=== PATIENT | female | born 1980 | race American Indian/Alaskan Native ===

== ENCOUNTER 2019-03-19 11:53 | Outpatient (CLI) | payer OTHER ==
--- NOTE | 2019-03-19 12:22 | XRay Report ---
RIGHT HIP, 2 views: History: Pain in right hip. 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 There are mild degenerative changes of the right hip joint. No evidence for acute fracture or bone lesion. Left hip replacement is anatomic. 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
== END 2019-03-19 11:54 | disposition home or self-care (01) ==
LOC: XRAY 11:53
PROVIDERS: ATTEND Orthopaedic Surgery
DX: M87.851 Other osteonecrosis, right femur (principal)

== ENCOUNTER 2019-04-11 05:37 | Inpatient (IN) | payer OTHER ==
--- NOTE | 2019-04-08 12:01 | Anesthesia Consultation ---
Anesthesia Consult and Med Hx Date of service: 04/11/19 - Airway Anesthetic Teeth Evaluation: Good ROM Head & Neck: Adequate Mental/Hyoid Distance: Adequate Mallampati Class: Class II Intubation Access Assessment: Good - Pre-Operative Health Status ASA Pre-Surgery Classification: ASA2 Proposed Anesthetic Plan: Spinal (SAB; GA if needed) - Pulmonary Hx Smoking: No Hx Sleep Apnea: No (RYAN PRE SCREEN LOW RISK) - Cardiovascular System Hx Hypertension: Yes (NO MEDS AT PRESENT) - Hematic Hx Anemia: Yes (NOT RECENT) Hx Sickle Cell Disease: No (SC TRAIT ONLY) - Other Systems Hx Cancer: No - Additional Comments Anesthesia Medical History Comments: 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 Pt states no cardiac issues and had ECG last August with Araceli NOLASCO
[2019-04-08 12:37] LABS: Basophils # (Auto) 0.1 K/mm3 (0.0-0.1); Eosinophils % (Auto) 0.4 % (0.0-4.3); Hematocrit 41.7 % (30.3-42.9); Hemoglobin 14.1 gm/dl (10.1-14.3); Lymphocytes # (Auto) 1.8 K/mm3 (1.2-5.4); Lymphocytes % (Auto) 28.5 % (13.4-35.0); Mean Corpuscular HGB Conc 34 % (30-34); Mean Corpuscular Volume 93 fl (79-97); Monocytes # (Auto) 0.5 K/mm3 (0.0-0.8); Monocytes % (Auto) 7.6 % (0.0-7.3); Platelet Count 164 K/mm3 (140-440); Red Blood Count 4.49 M/mm3 (3.65-5.03); Red Cell Distribution Width 14.4 % (13.2-15.2)
[2019-04-08 12:40] LABS: Alanine Aminotransferase 12 units/L (7-56); Albumin 4.2 g/dL (3.9-5); BUN/Creatinine Ratio 12; Blood Urea Nitrogen 11 mg/dL (7-17); Calcium 9.3 mg/dL (8.4-10.2); Hemolysis Index 22
[2019-04-08 12:45] LABS: INR 1.07 (0.87-1.13)
[~2019-04-11 05:37] MED LIST: ANCEF/STERILE WATER 2 GM/20 ML IV NR
[2019-04-11] MEDS ORDERED: NACL BACTERIOSTATIC INFILTRATI ONE (06:35)
[2019-04-11] MEDS: NEURONTIN PO NR ×2 (06:40→07:26)
[2019-04-11] MEDS: LACTATED RINGERS 1,000 ML IV SCH ×3 (06:45→21:06)
[2019-04-11] MEDS ORDERED: SUBLIMAZE IV ONE (06:51)
[2019-04-11] MEDS: VERSED IV NR ×2 (07:00→07:47)
[2019-04-11] MEDS ORDERED: NEURONTIN PO NR ×2 (07:21→07:30)
[2019-04-11] MEDS ORDERED: TORADOL ONE (07:30)
[2019-04-11] MEDS ORDERED: MARCAINE 0.5% INFILTRATI ONE (07:31)
[2019-04-11] MEDS ORDERED: TRANEXAMIC ACID ONE (07:31)
[2019-04-11] MEDS ORDERED: NACL 0.9% 0 ML ONE ×2 (07:31→07:32)
[2019-04-11] MEDS ORDERED: MORPHINE ONE (07:31)
[2019-04-11] MEDS ORDERED: ACD-A 500 ML IV ONE (08:01)
[2019-04-11] MEDS ORDERED: DIPRIVAN 10 MG/ML IV ONE ×3 (08:08→09:15)
[2019-04-11] MEDS ORDERED: KETALAR ONE (08:08)
[2019-04-11] MEDS ORDERED: XYLOCAINE CARDIAC IV ONE (08:47)
[2019-04-11] MEDS ORDERED: NEO SYNEPHRINE/NS Syringe(OR USE) IV ONE (08:48)
[2019-04-11] MEDS ORDERED: ROBINUL ONE (08:49)
[2019-04-11] MEDS ORDERED: NACL 0.9% IR ONE ×2 (08:55)
[2019-04-11] MEDS ORDERED: ZOFRAN IV PRN (10:16)
[2019-04-11] MEDS ORDERED: AMBIEN PO PRN (10:16)
--- NOTE | 2019-04-11 10:24 | Procedure Note ---
Date of procedure: 04/11/19 Pre-op diagnosis: osteoarthritis right hip Post-op diagnosis: same Procedure: Right total hip replacement Procedure The patient was brought to the OR after being given an epidural catheter in pre op holding,she was place on the OR table in the supine position next she patient's was turned into the left lateral decubitus position care was taken to protect the bony areas and a axillary roll was used and the left axilla. Right hip and thigh were then prepped and draped in the usual sterile manner. A timeout procedure was done to identify the patient and the correct operative site. Using the lateral approach incision was taken down through skin and subcutaneous the fascia ramses was incised A Charnley retractor was placed deep within the wound care was taken to enter the anterior hip capsule by the vastus lateralis and the gluteus medius tendons in the knee was flexed and internally rotated which brought us upon the anterior portion of the hip joint using a small broach and osteotomy was performed on the femoral neck approximately 2 cm to centimeters proximal to the lesser trochanter. Using Bailey retractors the the acetabular structures were evaluated the patient was noted to have some moderate changes within the acetabulum reaming was begun starting with a 45 mm diameter and advancing up to a 53 mm cup was taken to the observed bleeding bone within the acetabulum nicely 56 mm cup was inserted care was taken to maintain the proper version that being 45 abduction and 20 of anteversion and a small screw was used to stabilize this acetabular component next attention was turned to the proximal femur using a cookie cutter and the proximal femoral canal was entered this was then reamed and broached to a #4 stem And the hip joint was then reduced using a 30 neutral neck and a 32 mm head hip was reduced taken through a range of motion and was found to be stable Trial component was removed and the hip joint was then copiously irrigated the final components were inserted that being a #4 femoral stem with a 32 mm head a gain the hip joint was reduced and was taken through a range of motion and found stable. He was closed in a standard routine fashion. Dressings were applied the patient tolerated the procedure and there were no complications he was taken to postanesthesia recovery stable Anesthesia: MAC, regional Surgeon: ELY FERRIS Portfolio Specialist: FELIPE OLIVERA Estimated blood loss: other (300 mL) Pathology: list (right femoral head) Specimen disposition: to lab Condition: stable Disposition: PACU
[2019-04-11] MEDS ORDERED: SODIUM CHLORIDE FLUSH SYRINGE 10 ML IV SCH (11:00)
[2019-04-11] MEDS ORDERED: ROPIVACAINE PERCUTANEO NR (11:15)
[2019-04-11] MEDS ORDERED: SODIUM CHLORIDE 0.9% PERCUTANEO NR (11:15)
[2019-04-11] MEDS ORDERED: NARCAN 0.4 MG/1 ML IV PRN ×3 (11:30→12:27)
[2019-04-11] MEDS ORDERED: SODIUM CHLORIDE FLUSH SYRINGE 10 ML IV PRN ×4 (11:30→18:37)
--- NOTE | 2019-04-11 11:31 | Post Anesthesia Evaluation ---
- Post Anesthesia Evaluation Patient Participated: Yes Airway Patent: Yes Stable Respiratory Function: Yes Nausea/Vomiting: No Temp > 96.8F: Yes Pain Manageable: Yes Adequeate Hydration: Yes Anesthesia Complications: No
[2019-04-11] MEDS: MORPHINE IV PRN ×2 (13:00→15:49)
[2019-04-11] MEDS ORDERED: XYLOCAINE 2% INFILTRATI ONE ×3 (13:21→18:44)
[2019-04-11] MEDS ORDERED: SUBLIMAZE 500 MCG in NACL 0.9% 90 ML EPIDURAL SCH (13:30)
--- NOTE | 2019-04-11 19:16 | Progress Note ---
Assessment and Plan Inadequate post-op analgesia with epidural in-situ 1. Administered 9cc 2% lidocaine plain in divided doses via epidural catheter over 10 minutes with excellent response. Pain score currently 2/10. 2. New orders placed for fentanyl/bupivicaine epidural gtt as this will likely provide better analgesia and patient has been HD stable. Monitor for hypotension. 3. Will plan to remove catheter tomorrow morning per surgeon orders so that patient may participate in PT. Hold lovenox administration until at least 2hrs after epidural catheter removal. Plan of care discussed with patient, family, and RN. Subjective Date of service: 04/11/19 (Epidural Assessment) Interval history: Called by RN regarding uncontrolled patient POD 0 R total hip replacement with lumbar epidural in place for postop analgesia. Per nurse, patient reported >10/10 pain despite fentanyl epidural infusing as ordered and IV morphine prn. No hypotension or over-sedation. On my arrival, patient was A/O x3 in obvious discomfort. She reported that she initially had excellent pain control with epidural but was now in intolerable pain. Objective - Exam Narrative Exam: A/O x3 in obvious discomfort 2/2 pain - Constitutional Vitals: Vital Signs - 12hr 04/11/19 04/11/19 04/11/19 07:40 07:45 07:50 Temperature Pulse Rate 69 92 H 87 Respiratory 18 18 18 Rate Blood Pressure 145/89 119/78 103/82 O2 Sat by Pulse 99 99 99 Oximetry 04/11/19 04/11/19 04/11/19 07:55 08:00 10:31 Temperature 96.8 F L Pulse Rate 86 87 97 H Respiratory 18 16 15 Rate Blood Pressure 103/72 115/74 120/83 O2 Sat by Pulse 99 99 100 Oximetry 04/11/19 04/11/19 04/11/19 10:35 10:40 10:45 Temperature Pulse Rate 94 H 95 H 84 Respiratory 17 15 19 Rate Blood Pressure 119/89 121/89 128/95 O2 Sat by Pulse 100 100 100 Oximetry 04/11/19 04/11/19 04/11/19 10:50 11:00 11:15 Temperature 97.7 F Pulse Rate 84 72 71 Respiratory 14 18 20 Rate Blood Pressure 133/95 132/94 121/91 O2 Sat by Pulse 100 100 100 Oximetry 04/11/19 04/11/19 04/11/19 11:30 11:45 12:00 Temperature 97.4 F L Pulse Rate 81 76 87 Respiratory 18 16 20 Rate Blood Pressure 123/87 122/90 118/83 O2 Sat by Pulse 100 100 100 Oximetry 04/11/19 04/11/19 04/11/19 12:30 13:00 13:30 Temperature Pulse Rate 90 94 H 90 Respiratory 12 14 12 Rate Blood Pressure 128/87 142/88 128/87 O2 Sat by Pulse 100 100 96 Oximetry 04/11/19 04/11/19 04/11/19 13:41 13:53 14:25 Temperature 98 F Pulse Rate 100 H 99 H Respiratory 12 15 16 Rate Blood Pressure 126/83 118/74 O2 Sat by Pulse 100 100 Oximetry 04/11/19 16:54 Temperature 98.1 F Pulse Rate 102 H Respiratory 18 Rate Blood Pressure 128/94 O2 Sat by Pulse 96 Oximetry - Respiratory Respiratory effort: normal Extremities: Full ROM (LUE movement without deficit. Minimal RLE movement 2/2 pain.) - Neurologic Neurologic: moves all extremities - Labs CBC & Chem 7: 04/08/19 11:30 04/08/19 11:30
[2019-04-11] MEDS: fentaNYL-BUPIV 2 MCG/ML-0.125% 200 MCG/100 ML BAG EPIDURAL SCH (20:07)
[2019-04-11] MEDS: NORCO 5/325 PO PRN (21:04)
[2019-04-12] MEDS: fentaNYL-BUPIV 2 MCG/ML-0.125% 200 MCG/100 ML BAG EPIDURAL SCH (03:50)
[2019-04-12] MEDS: NORCO 5/325 PO PRN ×2 (05:17→15:35)
[2019-04-12 05:28] LABS: Red Blood Count 3.81 M/mm3 (3.65-5.03)
[2019-04-12 05:29] LABS: Hematocrit 34.7 % (30.3-42.9); Hemoglobin 12.2 gm/dl (10.1-14.3); Mean Corpuscular HGB Conc 35 % (30-34); Mean Corpuscular Volume 91 fl (79-97); Platelet Count 132 K/mm3 (140-440); Red Cell Distribution Width 13.5 % (13.2-15.2)
[2019-04-12 05:38] LABS: INR 1.29 (0.87-1.13)
[2019-04-12] MEDS: LACTATED RINGERS 1,000 ML IV SCH (06:58)
--- NOTE | 2019-04-12 07:09 | Post Anesthesia Evaluation ---
- Post Anesthesia Evaluation Patient Participated: Yes Airway Patent: Yes Stable Respiratory Function: Yes Nausea/Vomiting: No Temp > 96.8F: Yes Pain Manageable: Yes Adequeate Hydration: Yes Anesthesia Complications: No Block Receding Appropriately: Yes (Full motor strength) Other Comments: Epidural pump turned off at approx. 0600 and patient administerred PO pain meds. AM labs within acceptable range. Epidural catheter removed with tip intact, no erythema or tenderness at insertion site. Pain currently well controlled. Patient advised of red flag symptoms for epidural hematoma as well as post-dural puncture headache symptoms and instructed to alert RN or return to ED if these occur.
[2019-04-12] MEDS ORDERED: LOVENOX SUB-Q SCH (10:00)
[2019-04-12] MEDS: MORPHINE IV PRN (11:13)
[2019-04-12 12:53] VITALS: BP 126/81
--- NOTE | 2019-04-12 13:37 | Progress Note ---
Assessment and Plan s/p right THR doing well will dc to home today, RTC in 10 days for f/u Subjective Date of service: 04/12/19 Interval history: doing well, PT started today ambulated about room and hallway w/o difficulty Objective Vital signs: Vital Signs - 12hr 04/12/19 04/12/19 04/12/19 05:19 05:47 08:09 Temperature 98.7 F 98.4 F Pulse Rate 93 H 109 H 98 H Respiratory 18 18 Rate Blood Pressure 110/73 Blood Pressure 128/90 [Left] O2 Sat by Pulse 99 97 99 Oximetry 04/12/19 12:20 Temperature 98.7 F Pulse Rate 88 Respiratory 18 Rate Blood Pressure 126/81 Blood Pressure [Left] O2 Sat by Pulse 98 Oximetry Incision: clean and dry Weight bearing status: as tolerated - Labs CBC & BMP: 04/12/19 04:04 04/08/19 11:30 Labs: Abnormal lab results 04/12/19 04/12/19 Range/Units 04:04 04:04 WBC 13.9 H (4.5-11.0) K/mm3 MCHC 35 H (30-34) % Plt Count 132 L (140-440) K/mm3 PT 15.8 H (12.2-14.9) Sec. INR 1.29 H (0.87-1.13)
== END 2019-04-12 15:00 | disposition home or self-care (01) | DRG 470 ==
LOC: 3A 05:37 → 3B-SURG 10:33
PROVIDERS: ADMIT Orthopaedic Surgery; ATTEND Orthopaedic Surgery
PROC: 0SR90JZ Replacement of Right Hip Joint with Synthetic Substitute, Open Approach (ICD-10-PCS; principal; 2019-04-11)
PROC: 3E0R3BZ Introduction of Anesthetic Agent into Spinal Canal, Percutaneous Approach (ICD-10-PCS; 2019-04-11)
PROC: 00HU33Z Insertion of Infusion Device into Spinal Canal, Percutaneous Approach (ICD-10-PCS; 2019-04-11)
DX: M16.11 Unilateral primary osteoarthritis, right hip (principal); M87.851 Other osteonecrosis, right femur; I10 Essential (primary) hypertension; Z96.642 Presence of left artificial hip joint; F32.9 Major depressive disorder, single episode, unspecified; Z82.49 Family history of ischemic heart disease and other diseases of the circulatory system; Z82.5 Family history of asthma and other chronic lower respiratory diseases
CPT/HCPCS: 36415; 62324; 80053; 84703; 85025; 85027; 85610; 85730; 86850; 86900; 86901; 88304; 88311; G0378; A4217; C1776; J0690; J1650; J1885; J2001; J2250; J2270; J2370; J2704; J3010; J7120

== ENCOUNTER 2019-04-23 11:06 | Outpatient (CLI) | payer OTHER ==
--- NOTE | 2019-04-23 12:01 | XRay Report ---
XR hip 2-3V RT INDICATION / CLINICAL INFORMATION: -Z96.641 PRESENCE OF RIGHT ARTIFICAL HIP JOINT/. COMPARISON: 03/19/2019 FINDINGS: BONES/JOINT(S): Right total hip arthroplasty has been placed with satisfactory postoperative radiogra phic appearance. There is no evidence of loosening or periprosthetic fracture. Visualized portions of the left total hip arthroplasty appear unremarkable. SOFT TISSUES: Bilateral tubal ligation clips noted. ADDITIONAL FINDINGS: None. Signer Name: Rodolfo Phelps MD Signed: 04/23/2019 11:57 AM Workstation Name: [id number]
== END 2019-04-23 11:07 | disposition home or self-care (01) ==
LOC: XRAY 11:06
PROVIDERS: ATTEND Orthopaedic Surgery
DX: M25.551 Pain in right hip (principal); Z96.641 Presence of right artificial hip joint; I10 Essential (primary) hypertension